=== PATIENT | female | born 1975 | race Caucasian/White ===

== ENCOUNTER 2021-09-13 13:51 | Emergency (ER) | payer OTHER ==
[2021-09-13] MEDS ORDERED: diphenhydrAMINE 50 MG/ML SDV IVPUSH ONE (13:58)
[2021-09-13] MEDS ORDERED: Ketorolac 30 MG/ML SDV IVPUSH ONE (13:58)
[2021-09-13] MEDS ORDERED: fentaNYL 50 MCG/ML SDV IVPUSH ONE (13:58)
[2021-09-13] MEDS ORDERED: Acetaminophen 500 MG Tab PO ONE (14:38)
[2021-09-13] MEDS ORDERED: oxyCODONE 5 MG Tab PO ONE (14:38)
== END 2021-09-13 15:39 | disposition home or self-care (01) ==
LOC: JP.ED 13:51
DX: S22.42XA Multiple fractures of ribs, left side, initial encounter for closed fracture (principal); S42.023A Displaced fracture of shaft of unspecified clavicle, initial encounter for closed fracture; S42.022A Displaced fracture of shaft of left clavicle, initial encounter for closed fracture; M54.6 Pain in thoracic spine; M25.512 Pain in left shoulder; V86.99XA Unspecified occupant of other special all-terrain or other off-road motor vehicle injured in nontraffic accident, initial encounter
CPT/HCPCS: 71101; 73000; 73010; 73030; 96374; 96375; 99283; A9270; J1200; J1885; J3010